=== PATIENT | female | born 1950 | race Caucasian/White ===

== ENCOUNTER → 2018-08-25 | Outpatient (CLI) | payer MEDICARE, OTHER ==
[~2018-08-25] MED LIST: CIPRO250 M1 PO; COZAAR 25 MG TA25 M1 PO; METFORMIN HCL500 MG PO
== END ==
LOC: M.RAD 08:11
DX: Z12.31 Encounter for screening mammogram for malignant neoplasm of breast (principal); N91.2 Amenorrhea, unspecified; Z78.0 Asymptomatic menopausal state; Z79.899 Other long term (current) drug therapy

== ENCOUNTER → 2021-12-02 | Outpatient (CLI) | payer OTHER | LOC: M.RAD 11-08 13:11 | PROVIDERS: ATTEND Registered Nurse Diabetes Educator | DX: Z12.31 Encounter for screening mammogram for malignant neoplasm of breast (principal); M81.0 Age-related osteoporosis without current pathological fracture; M85.88 Other specified disorders of bone density and structure, other site; Z78.0 Asymptomatic menopausal state ==